=== PATIENT | female | born 1995 | race Caucasian/White ===

== ENCOUNTER 2018-07-31 11:35 | Inpatient (IN) | payer BC ==
[2018-07-31] MEDS ORDERED: Ondansetron PF 4 MG/2 ML Vial IVP PRN (11:54)
[2018-07-31] MEDS ORDERED: Promethazine HCl 25 MG/ML VIAL IM PRN (11:54)
[2018-07-31] MEDS: Lactated Ringer's 1,000 ML IV SCH ×2 (12:25→20:47)
[2018-07-31 12:49] VITALS: BMI 34.2
[2018-07-31 12:54] LABS: Hemoglobin 12.6 g/dL (12.0-16.0); Mean Corpuscular Hemoglobin 29.2 pg (27.0-31.0); Mean Corpuscular Volume 88.5 fL (78.0-98.0); Mean Platelet Volume 9.9 fL (7.4-10.4); Platelet Count 198 thou/uL (130-400); RBC Distribution Width 11.6 % (11.5-14.5); Red Blood Cell (RBC) Count 4.32 mill/uL (4.20-5.40); White Blood Cell (WBC) Count 8.3 thou/uL (4.8-10.8)
[2018-07-31 13:07] LABS: ALT (SGPT) Less than 7 U/L (8-55); AST (SGOT) 13 U/L (5-34); Uric Acid 4.7 mg/dL (2.6-6.0)
[2018-07-31 13:27] LABS: HBSAg Index 0.32 S/CO (0-0.99); Hep B Surf Ag Non-Reactive S/CO (NonReactive); Syphilis Antibody Nonreactive (Nonreactive); Syphilis Antibody Index 0.04 S/CO (<1.00 Non-Reactive)
[2018-07-31] MEDS ORDERED: Calcium Gluc 4.6 MEQ/10 ML (100 MG/ML) SLOW IVP PRN (13:34)
[2018-07-31] MEDS: NIFEdipine XL 30 MG TAB PO SCH (13:59)
[2018-07-31 15:38] LABS: Bilirubin Negative (Negative); Blood, Urine Negative (Negative); Clarity CLEAR (Clear); Glucose, Urine (Dipstick) Negative (Negative); Leukocyte Trace (Negative); Nitrite Negative (Negative); Protein, Urine (Dipstick) Negative (Neg-Trace); Specific Gravity, Urine 1.006 (1.002-1.036); Urobilinogen 0.2 mg/dL (0.2-1.0); pH, Urine 6.5 (5.0-9.0)
[2018-07-31 15:42] LABS: Bacteria/HPF 1+ HPF (None Seen); Hyaline Casts/LPF 0-3 HYALINE CAST LPF (0-3 Hyaline); RBC/HPF 0-3 HPF (0-3); Squamous Epithelial 0-3 HPF (0-3)
[2018-08-01] MEDS: Lactated Ringer's 1,000 ML IV SCH (04:52)
[2018-08-01] MEDS ORDERED: CEFAZOLIN 2 GM in Premix Bag 1 BAG IVPB SCH (07:15)
[2018-08-01 07:38] VITALS: BP 142/89; TEMP 97.8
[2018-08-01] MEDS: NIFEdipine XL 30 MG TAB PO SCH (08:13)
[2018-08-01] MEDS ORDERED: Betamet Acet/Betamet Na Ph 30 MG/5 ML VIAL IM SCH (11:00)
== END 2018-08-01 12:05 | disposition home health service (06) | DRG 833 ==
LOC: L&D/OP 11:35 → L&D 18:02
PROVIDERS: ADMIT Obstetrics & Gynecology; ATTEND Obstetrics & Gynecology
DX: O13.3 Gestational [pregnancy-induced] hypertension without significant proteinuria, third trimester (principal); Z3A.35 35 weeks gestation of pregnancy
CPT/HCPCS: 36415; 81001; 82570; 83615; 84155; 84450; 84460; 84550; 85027; 86780; 86850; 86900; 86901; 87340; 99285; J0690; J0702

== ENCOUNTER 2018-08-06 10:15 | Inpatient (IN) | payer BC ==
[2018-08-06 10:36] VITALS: BMI 34.9
[2018-08-06] MEDS ORDERED: Ketorolac Tromethamine 30 MG/ML VIAL ONE ×2 (11:14→13:20)
[2018-08-06] MEDS ORDERED: Dexamethasone 20 MG/5 ML VIAL ONE (11:14)
[2018-08-06] MEDS ORDERED: diphenhydrAMINE 50 MG/ML VIAL ONE ×2 (11:14→13:20)
[2018-08-06] MEDS ORDERED: Ondansetron PF 4 MG/2 ML Vial ONE ×2 (11:14→13:20)
[2018-08-06] MEDS ORDERED: PHENYLEPHRINE-NS 100 MCG/ML 10 ML SYRINGE ONE ×2 (11:14→13:20)
[2018-08-06] MEDS ORDERED: hydrALAZINE 20 MG/ML VIAL ONE (11:27)
[2018-08-06] MEDS ORDERED: Magnesium Sulfate 20 gm/500 ml 20 GM/500 ML BAG ONE (11:27)
[2018-08-06] MEDS ORDERED: hydrALAZINE 20 MG/ML VIAL SLOW IVP SCH (11:30)
[2018-08-06 11:46] LABS: Mean Corpuscular HGB CONC 33.9 g/dL (32.0-36.0); Mean Corpuscular Hemoglobin 29.6 pg (27.0-31.0); Mean Corpuscular Volume 87.3 fL (78.0-98.0); Mean Platelet Volume 9.8 fL (7.4-10.4); Platelet Count 185 thou/uL (130-400); RBC Distribution Width 11.7 % (11.5-14.5); White Blood Cell (WBC) Count 12.6 thou/uL (4.8-10.8)
[2018-08-06] MEDS ORDERED: Ondansetron PF 4 MG/2 ML Vial IVP PRN ×3 (12:04→15:16)
[2018-08-06] MEDS ORDERED: Promethazine HCl 25 MG/ML VIAL IM PRN ×2 (12:04→14:55)
[2018-08-06] MEDS ORDERED: Calcium Gluc 4.6 MEQ/10 ML (100 MG/ML) IV PRN (12:06)
[2018-08-06] MEDS ORDERED: Magnesium Sulfate 20 gm/500 ml 4 GM/100 ML BAG IVPB ONE (12:06)
[2018-08-06] MEDS ORDERED: CEFAZOLIN 2 GM in Premix Bag 1 BAG IVPB SCH (12:15)
[2018-08-06 12:19] LABS: Syphilis Antibody Nonreactive (Nonreactive); Syphilis Antibody Index 0.03 S/CO (<1.00 Non-Reactive)
[2018-08-06 12:23] LABS: HBSAg Index 0.28 S/CO (0-0.99); Hep B Surf Ag Non-Reactive S/CO (NonReactive)
[2018-08-06] MEDS ORDERED: Bicitra 30 ML UDCUP ONE (12:59)
[2018-08-06] MEDS: Lactated Ringer's 1,000 ML IV SCH ×2 (12:59→20:25)
[2018-08-06] MEDS ORDERED: MORPHINE 5 MG/10 ML PF VIAL ONE (13:19)
[2018-08-06] MEDS ORDERED: Oxytocin 10 UNITS/ML VIAL ONE (13:20)
[2018-08-06] MEDS ORDERED: Dexamethasone 4 mg/ml Vial ONE (13:20)
[2018-08-06] MEDS ORDERED: HYDROmorphone 2 MG/ML VIAL SLOW IVP PRN (14:55)
[2018-08-06] MEDS ORDERED: Ketorolac Tromethamine 30 MG/ML VIAL IVP PRN (14:55)
[2018-08-06] MEDS ORDERED: L&D-Morphine 4 MG/ML VIAL SLOW IVP PRN (14:55)
[2018-08-06] MEDS ORDERED: Naloxone HCl 0.4 mg/ml Vial IVP PRN ×2 (14:55)
[2018-08-06] MEDS ORDERED: diphenhydrAMINE 50 MG/ML VIAL IVP PRN (14:55)
[2018-08-06] MEDS ORDERED: Promethazine HCl 25 MG SUPP PR PRN (14:55)
[2018-08-06] MEDS ORDERED: Eucerin (Mineral Oil/Petrolatum,White) 30 gm Jar TOP PRN (14:55)
[2018-08-06] MEDS ORDERED: Naloxone HCl 0.4 mg/ml Vial IV PRN (14:55)
[2018-08-06] MEDS ORDERED: Ondansetron HCl/PF 4 MG/2 ML Vial IVP PRN (14:55)
[2018-08-06] MEDS ORDERED: Meperidine HCl/PF 25 MG/ML VIAL SLOW IVP PRN (14:55)
[2018-08-06] MEDS ORDERED: Communication Order-Pharmacy FS SCH (15:00)
[2018-08-06] MEDS ORDERED: diphenhydrAMINE 25 MG CAP PO PRN (15:16)
[2018-08-06] MEDS ORDERED: Lanolin Ointment 7 GM TUBE TOP PRN (15:16)
[2018-08-06] MEDS ORDERED: Acetaminophen 325 MG TAB PO PRN (15:16)
[2018-08-06] MEDS ORDERED: Bisacodyl 10 MG SUPP PR PRN (15:16)
[2018-08-06] MEDS ORDERED: Calcium Gluconate 4.6 MEQ in Sodium Chloride 0.9% 100 ML IVPB PRN (15:16)
[2018-08-06] MEDS ORDERED: Simethicone Chewable 80 MG TAB PO PRN (15:16)
[2018-08-06] MEDS ORDERED: Lactated Ringer's 1,000 ML IV SCH (15:30)
[2018-08-06] MEDS ORDERED: Misoprostol 200 MCG TAB PR PRN (15:30)
[2018-08-06] MEDS ORDERED: NS / Oxytocin 40 units/1000ml 1,000 ML IV SCH (15:30)
[2018-08-06] MEDS: Magnesium Sulfate 20 gm/500 ml 20 GM/500 ML BAG IVPB SCH (20:25)
[2018-08-06] MEDS: Docusate Calcium (SURFAK) 240 MG CAP PO SCH (21:48)
[2018-08-06] MEDS: Ferrous Sulfate 325 MG TAB PO SCH (21:49)
[2018-08-07] MEDS: Ibuprofen 800 MG TAB PO SCH ×4 (01:16→15:48)
[2018-08-07] MEDS ORDERED: Zolpidem Tartrate 5 MG TAB PO PRN ×2 (03:00→13:09)
[2018-08-07] MEDS ORDERED: Meperidine HCl/PF 25 MG/ML VIAL IM PRN (03:00)
[2018-08-07] MEDS ORDERED: HYDROcodone/Acetaminophen 5/325 mg Tablet PO PRN ×3 (03:00→13:09)
[2018-08-07] MEDS: Magnesium Sulfate 20 gm/500 ml 20 GM/500 ML BAG IVPB SCH (06:34)
[2018-08-07 07:52] LABS: Hemoglobin 9.4 g/dL (12.0-16.0); Mean Corpuscular HGB CONC 34.4 g/dL (32.0-36.0); Mean Corpuscular Hemoglobin 30.3 pg (27.0-31.0); Mean Corpuscular Volume 88.1 fL (78.0-98.0); Mean Platelet Volume 9.3 fL (7.4-10.4); Platelet Count 227 thou/uL (130-400); RBC Distribution Width 11.7 % (11.5-14.5); Red Blood Cell (RBC) Count 3.09 mill/uL (4.20-5.40); White Blood Cell (WBC) Count 15.9 thou/uL (4.8-10.8)
[2018-08-07] MEDS: Prenatal Vitamin 1 TAB PO SCH (09:47)
[2018-08-07] MEDS: Docusate Calcium (SURFAK) 240 MG CAP PO SCH ×2 (09:47→21:17)
[2018-08-07] MEDS: Ferrous Sulfate 325 MG TAB PO SCH ×2 (09:48→17:29)
[2018-08-07] MEDS: Lactated Ringer's 1,000 ML IV SCH ×2 (10:51→15:48)
[2018-08-07] MEDS ORDERED: Bisacodyl 10 MG SUPP PR PRN (13:09)
[2018-08-07] MEDS ORDERED: Adacel (T-DAP) 0.5 ML SYRINGE IM ONE (13:09)
[2018-08-07] MEDS ORDERED: Ondansetron PF 4 MG/2 ML Vial IVP PRN (13:09)
[2018-08-07] MEDS ORDERED: diphenhydrAMINE 25 MG CAP PO PRN (13:09)
[2018-08-07] MEDS ORDERED: Lanolin Ointment 7 GM TUBE TOP PRN (13:09)
[2018-08-07] MEDS ORDERED: Acetaminophen 325 MG TAB PO PRN (13:09)
[2018-08-07] MEDS: Adacel (T-DAP) 0.5 ML SYRINGE IM ONE (15:49)
[2018-08-07] MEDS: Simethicone Chewable 80 MG TAB PO PRN (21:17)
[2018-08-07] MEDS ORDERED: Ibuprofen 800 MG TAB PO SCH (22:00)
[2018-08-08] MEDS: HYDROcodone/Acetaminophen 5/325 mg Tablet PO PRN ×3 (00:33→19:10)
[2018-08-08] MEDS: Ferrous Sulfate 325 MG TAB PO SCH ×2 (09:35→21:58)
[2018-08-08] MEDS: Prenatal Vitamin 1 TAB PO SCH ×2 (09:36→09:44)
[2018-08-08] MEDS: Docusate Calcium (SURFAK) 240 MG CAP PO SCH ×2 (09:36→21:58)
[2018-08-08] MEDS: Simethicone Chewable 80 MG TAB PO PRN (21:59)
[2018-08-09] MEDS: Prenatal Vitamin 1 TAB PO SCH (09:39)
[2018-08-09] MEDS: Docusate Calcium (SURFAK) 240 MG CAP PO SCH ×2 (09:39→21:16)
[2018-08-09] MEDS: Ferrous Sulfate 325 MG TAB PO SCH ×2 (09:39→17:53)
[2018-08-09] MEDS: HYDROcodone/Acetaminophen 5/325 mg Tablet PO PRN ×2 (12:25→21:16)
[2018-08-10] MEDS: HYDROcodone/Acetaminophen 5/325 mg Tablet PO PRN ×2 (06:18→21:37)
[2018-08-10] MEDS: Labetalol 100 MG TAB PO SCH ×2 (09:09→21:34)
[2018-08-10] MEDS: Prenatal Vitamin 1 TAB PO SCH (09:09)
[2018-08-10] MEDS: Docusate Calcium (SURFAK) 240 MG CAP PO SCH ×2 (09:09→21:35)
[2018-08-10] MEDS: Ferrous Sulfate 325 MG TAB PO SCH ×2 (09:09→18:04)
[2018-08-11] MEDS: HYDROcodone/Acetaminophen 5/325 mg Tablet PO PRN ×3 (05:04→16:01)
[2018-08-11] MEDS: Prenatal Vitamin 1 TAB PO SCH (07:52)
[2018-08-11] MEDS: Docusate Calcium (SURFAK) 240 MG CAP PO SCH (07:52)
[2018-08-11] MEDS: Ferrous Sulfate 325 MG TAB PO SCH (07:52)
[2018-08-11] MEDS: Labetalol 100 MG TAB PO SCH (07:53)
[2018-08-11] MEDS: Adacel (T-DAP) 0.5 ML SYRINGE IM ONE (16:04)
[2018-08-11 16:16] VITALS: BP 148/90; TEMP 99.4
== END 2018-08-11 16:15 | disposition home or self-care (01) | DRG 788 ==
LOC: L&D 10:15 → 3SW 08-07 15:35
PROVIDERS: ADMIT Obstetrics & Gynecology; ATTEND Obstetrics & Gynecology
PROC: 10D00Z1 Extraction of Products of Conception, Low, Open Approach (ICD-10-PCS; principal; 2018-08-06)
DX: O14.14 Severe pre-eclampsia complicating childbirth (principal); Z3A.36 36 weeks gestation of pregnancy; Z37.0 Single live birth; O69.81X0 Labor and delivery complicated by cord around neck, without compression, not applicable or unspecified
CPT/HCPCS: 36415; 51702; 81003; 82570; 83615; 83735; 84450; 84460; 84550; 85027; 86780; 86850; 86900; 86901; 87340; 88307; 90715; J0360; J0690; J1100; J1200; J1885; J2270; J2405; J2590; J3475; Q0163